=== PATIENT | female | born 2005 ===

== ENCOUNTER 2025-02-28 12:57 | Outpatient (CLI) | payer OTHER | END 2025-02-28 12:58 | disposition home or self-care (01) | LOC: PRENATAL 12:57 | PROVIDERS: ATTEND Obstetrics & Gynecology Maternal & Fetal Medicine | DX: O44.00 Complete placenta previa NOS or without hemorrhage, unspecified trimester (principal); O43.90 Unspecified placental disorder, unspecified trimester; Z3A.25 25 weeks gestation of pregnancy ==

== ENCOUNTER 2025-03-28 16:08 | Outpatient (CLI) | payer OTHER | END 2025-03-28 16:13 | disposition home or self-care (01) | LOC: PRENATAL 16:08 | DX: O26.849 Uterine size-date discrepancy, unspecified trimester (principal); O43.90 Unspecified placental disorder, unspecified trimester; Z3A.30 30 weeks gestation of pregnancy ==

== ENCOUNTER 2025-05-23 14:35 | Outpatient (CLI) | payer OTHER | END 2025-05-23 14:38 | disposition home or self-care (01) | LOC: PRENATAL 14:35 | PROVIDERS: ATTEND Obstetrics & Gynecology Maternal & Fetal Medicine | DX: O26.849 Uterine size-date discrepancy, unspecified trimester (principal); O36.8130 Decreased fetal movements, third trimester, not applicable or unspecified; O43.90 Unspecified placental disorder, unspecified trimester; Z3A.37 37 weeks gestation of pregnancy ==

== ENCOUNTER 2025-06-09 06:36 | Inpatient (IN) | payer OTHER ==
[~2025-06-09] VITALS: Ht 157.5 cm; Wt 79.4 kg
[2025-06-09] VITALS (10 sets, daily range): BP systolic 117–142; BP diastolic 68–84
[2025-06-09] MEDS ORDERED: AMPICILLIN SODIUM 2,000 MG in 0.9 % SODIUM CHLORIDE 100 ML IV SCH ×2 (07:30→20:00)
[2025-06-09] MEDS ORDERED: OXYTOCIN 500 ML IV SCH (07:30)
[2025-06-09] MEDS ORDERED: AMPICILLIN SODIUM 2,000 MG VIAL ONE (07:46)
[2025-06-09 08:08] LABS: BASO % 0.3 % (0.1-1.2); EOS # 0.08 (0.04-0.54); EOS % 0.8 % (0.7-7.0); LYMPH # 2.76 (1.18-3.74); LYMPH % 27.4 % (19.3-53.1); MEAN PLATELET VOLUME 12.60 fl (9.4-12.4); MONO # 1.01 (0.24-0.82); MONO % 10.0 % (4.7-12.5); NEUT # 6.17 (1.56-6.13); NEUT % 61.3 % (34.0-71.1); RED CELL DISTRIBUTION WIDTH 14.2 % (11.6-14.4)
[2025-06-09] MEDS ORDERED: PRENATA CHEWAB1 EACH PO (08:48)
[2025-06-09] MEDS ORDERED: IRON236 MG PO (08:48)
[2025-06-09 08:55] LABS: INR < 0.93
[2025-06-09 08:56] LABS: URINE APPEARANCE Clear; URINE BILIRRUBIN Negative (NEGATIVE); URINE BLOOD Negative; URINE COLOR Yellow; URINE GLUCOSE Negative (NEGATIVE); URINE KETONE Negative (NEGATIVE); URINE LEUKOCYTE Large; URINE NITRATE Negative; URINE PROTEIN 30 (NEGATIVE); URINE UROBILINOGEN 0.2 E.U./dl
[2025-06-09] MEDS ORDERED: RINGERS SOLUTION,LACTATED 1,000 ML IV SCH (09:00)
[2025-06-09 09:03] LABS: URINE BACTERIA 3677.9 uL (0.0-1933); URINE EPITHELIAL CELLS 49.9 uL (0.0-38.8); URINE RBC 2.9 uL (0.0-20.8); URINE WBC 172.7 uL (0.0-23.2)
[2025-06-09 09:10] LABS: URINE CAST 0.58 uL (0.0-1.40)
[2025-06-09 09:16] LABS: ALT/SGPT 21.0 U/L (12-78); AST/SGOT 12.0 U/L (15-37); BILIRUBIN TOTAL 0.39 mg/dL (0.3-1.2); BUN CREA RATIO 14.0 (7.0-25.0); CREATININE SERUM 0.63 mg/dL (0.55-1.02); GFR 119.29; GLOBULINA 3.5 G/DL (2.4-3.5); GLUCOSE FASTING 143.0 mg/dL (65-100); OSMOLALITY SERUM 281.0 MOSM/KG (275-295)
[2025-06-09] MEDS ORDERED: MORPHINE SULFATE 4 MG/ML CARTRIDGE IV ONE (16:30)
[2025-06-09] MEDS ORDERED: OXYTOCIN 20 UNITS/1000ML RL PIGGYBAG IV ONE (16:46)
[2025-06-09] MEDS ORDERED: CHLORHEXIDINE GLUCONATE 120 ML BOTTLE TOP ONE ×2 (16:46→18:30)
[2025-06-09] MEDS ORDERED: LIDOCAINE HCL 1% 10ML VIAL ONE ×2 (16:46→18:40)
[2025-06-09] MEDS ORDERED: ERYTHROMYCIN BASE OPHT 1GM EACH TUBE OP ONE ×2 (16:46→19:15)
[2025-06-09] MEDS ORDERED: NALOXONE HCL 0.4 MG/ML AMPUL ONE (16:49)
[2025-06-09] MEDS ORDERED: CEFOXITIN SODIUM 2,000 MG VIAL IV ONE (17:59)
[2025-06-09] MEDS ORDERED: CEFOXITIN SODIUM 2,000 MG VIAL IV STA (18:05)
[2025-06-09] MEDS ORDERED: METRONIDAZOLE/SODIUM CHLORIDE 500 MG/100 ML PIGGYBACK IV STA (18:05)
[2025-06-09] MEDS ORDERED: METRONIDAZOLE/SODIUM CHLORIDE 500 MG/100 ML PIGGYBACK IV ONE (18:18)
[2025-06-09] MEDS ORDERED: OXYTOCIN 1,000 ML IV SCH (18:30)
[2025-06-09] MEDS ORDERED: DOCUSATE SODIUM 100MG CAP PO SCH (18:34)
[2025-06-09] MEDS ORDERED: ACETAMINOPHEN 500 MG GEL..CAP PO PRN (18:45)
[2025-06-09] MEDS ORDERED: BENZOCAINE/MENTHOL 90 ML BOTTLE TOP PRN (18:45)
[2025-06-09] MEDS ORDERED: LIDOCAINE HCL 1% 20 ML VIAL IJ ONE (19:15)
[2025-06-10] VITALS: BP 134/86
[2025-06-10] MEDS ORDERED: CEFOXITIN SODIUM 2,000 MG in 0.9 % SODIUM CHLORIDE 100 ML IV SCH
[2025-06-10 08:17] VITALS: BP 109/75
[2025-06-10 16:39] VITALS: BP 125/81
[2025-06-11 01:13] VITALS: BP 122/79
[2025-06-11 09:02] VITALS: BP 120/60
[2025-06-11] MEDS ORDERED: COLACE100 MG PO (10:07)
== END 2025-06-11 13:54 | disposition home or self-care (01) | DRG 768 ==
LOC: LDR 06:36 → OB/GYN 18:37
PROVIDERS: ADMIT Obstetrics & Gynecology; ATTEND Obstetrics & Gynecology
PROC: 10E0XZZ Delivery of Products of Conception, External Approach (ICD-10-PCS; principal; 2025-06-09)
PROC: 0DQP0ZZ Repair Rectum, Open Approach (ICD-10-PCS; 2025-06-09)
PROC: 4A1HXCZ Monitoring of Products of Conception, Cardiac Rate, External Approach (ICD-10-PCS; 2025-06-09)
DX: O70.3 Fourth degree perineal laceration during delivery (principal); O99.824 Streptococcus B carrier state complicating childbirth; Z37.0 Single live birth; Z3A.38 38 weeks gestation of pregnancy